=== PATIENT | male | born 1960 | race Caucasian/White ===

== ENCOUNTER → 2022-01-09 | Outpatient (CLI) | payer BC ==
[~2022-01-09] MED LIST: FLAGYL500 MG PO; FLONASE NASAL S16 GM NS; FLONASEALLERGY; LEVAQUIN 750MG750 M1 PO; MULTI VITAMINS1 TAB PO; ULTRAM 50MG TAB50 MG PO
== END ==
LOC: COL.RAD 07:03
DX: K50.812 Crohn's disease of both small and large intestine with intestinal obstruction (principal)
CPT/HCPCS: A9575

== ENCOUNTER 2022-12-20 18:05 | Emergency (ER) | payer BC ==
[~2022-12-20] VITALS: Ht 182.9 cm; Wt 109.1 kg
[2022-12-20 18:10] VITALS: TEMP 98.1
[2022-12-20] MEDS ORDERED: CEPHALEXIN500 M1 PO (20:58)
[2022-12-20] MEDS ORDERED: BACITRACIN TOPIC1 TU TOP (21:24)
[2022-12-20 21:30] VITALS: BP 143/96; PULSE 79
== END 2022-12-20 21:30 | disposition home or self-care (01) ==
LOC: COL.ER 18:05
DX: S61.210A Laceration without foreign body of right index finger without damage to nail, initial encounter (principal); S61.212A Laceration without foreign body of right middle finger without damage to nail, initial encounter; W29.3XXA Contact with powered garden and outdoor hand tools and machinery, initial encounter